=== PATIENT | male | born 1950 | race Caucasian/White ===

== ENCOUNTER 2021-02-23 17:11 | Inpatient (IN) | payer MEDICARE, BC ==
[~2021-02-23] VITALS: Ht 175.3 cm; Wt 62.1 kg
--- NOTE | 2021-02-23 22:15 | NUR ---
GPS ADMISSION NOTE, RECEIVED PATIENT FROM [facility] / [place]. PATIENT ARRIVED ON THIS UNIT AT 2215 VIA WHEELCHAIR WITH 1 ESCORT. PATIENT ADMITTED ON A 5150 HOLD FOR GD. PER HOLD PATIENT HAS NOT SHOWERED OR BATHED IN ONE YEAR PER HIS . PATIENT APPEARS SKINNY AND WITHOUT ASSISTANCE WOULD NOT BE ABLE TO CARE FOR HIMSELF. PATIENT HAS NO VIABLE PLAN FOR SELF CARE AT THIS TIME. THE 5150 WAS REVIEWED AND THE DOCUMENTATION IN THE 5150 HOLD APPEARS TO REFLECT THE PRESENTATION OF THE PATIENT. UPON FACE TO FACE ASSESSMENT PATIENT IS NOTED TO BEING CONFUSED, DISHEVELED, DISORGANIZED, COOPERATIVE, AND NEEDS REDIRECTION. PATIENT IS CURRENTLY LYING IN BED AWAKE, PATIENT HAS A COMPLAINT OF CHRONIC LOWER BACK PAIN AT A 3 OUT 10 ON THE PAIN SCALE. PATIENT IS TAKING ORAL PAIN MEDICATION FOR THIS PAIN. PATIENT IS DISPLAYING NO S/S OF APPARENT DISTRESS. PATIENT BREATHING IS UNLABORED WITH EQUAL RISE AND FALL OF THE CHEST. PATIENT IS ALERT AND ORIENTATED X 1 ON ROOM AIR. PATIENT ASSISTED WITH TURING AND REPOSITIONING Q2HR AND PRN FOR COMFORT AND CIRCULATION. PATIENT HAS NO NEEDS AT THIS TIME. PATIENT DENIES SUICIDE IDEATIONS AND HOMICIDAL IDEATIONS AT THIS TIME. PATIENT REFUSED TO SIGN ANY PAPER WORK AND THINKS THIS IS ALL A MISTAKE. PATIENT ADVISED OF HIS HOLD AND PATIENT RIGHTS BOOKLET GIVEN. PATIENT IS UNDER THE PSYCHIATRIC CARE OF DR. KINNEY AND THE MEDICAL CARE OF DR TATE. PATIENT BELONGINGS WERE INVENTORIED AND CHECKED FOR CONTRABAND. ALL CONTRABAND REMOVED AND STORED IN PATIENT HALLWAY LOCKER. PATIENT ADVANCED DIRECTIVES PREFERENCE, IMMUNIZATIONS QUESTIONER, NECESSARY PAPERWORK COMPLETED. SKIN ASSESSMENT DONE. PATIENT ORIENTATED TO ROOM, FLOOR, AND STAFF WITH ALL QUESTIONS ANSWERED. PATIENT EDUCATED ON THE USE OF THE CALL NUÑEZ. PATIENT BED SIDE RAILS ARE UP X 2 FOR SAFETY. PATIENT BED IS LOCKED, LOW AND I WILL CONTINUE TO MONITOR THIS PATIENT Q 15 MIN WITH THE HELP OF STAFF TO MAINTAIN SAFETY.
[2021-02-23] MEDS ORDERED: BUDE0.5A4 NEB (22:38)
[2021-02-23] MEDS ORDERED: APIX5TAB PO (22:39)
[2021-02-23] MEDS ORDERED: FOLI1CAP7 PO (22:40)
[2021-02-23] MEDS ORDERED: QUET25TA PO ×2 (22:42→22:45)
[2021-02-23] MEDS ORDERED: MULT-754 PO (22:43)
[2021-02-23] MEDS ORDERED: LEVA0.6320 NEB (22:46)
[2021-02-23] MEDS ORDERED: LORAZEPAM 0.5 MG TABLET PO PRN (23:00)
[2021-02-23] MEDS ORDERED: ACETAMINOPHEN 325 MG TABLET PO PRN (23:00)
[2021-02-23] MEDS ORDERED: MAG HYDROX/AL HYDROX/SIMETH 30 ML UDC PO PRN (23:00)
[2021-02-23] MEDS ORDERED: MAGNESIUM HYDROXIDE 30 ML UDC PO PRN (23:00)
[2021-02-23] MEDS ORDERED: BLOOD SUGAR DIAGNOSTIC 1 EACH STRIP IN ONE (23:30)
--- NOTE | 2021-02-24 00:25 | NUR ---
GPS RN NOTE PT BLOOD SUGAR IS 72, GAVE 8 OZ JUICE AND SNACKS GIVEN. ENVIRONMENTAL PROGRAMS SPECIALIST MADE AWARE OF SITUATION.
--- NOTE | 2021-02-24 00:35 | NUR ---
GPS RN NOTE NOTIFIED FIRER BOILER DR TATE REGARDING MED RECON.
[2021-02-24] MEDS ORDERED: ALBUTEROL HALF STRENGTH 1.25 MG/3 ML VIAL.NEB NEB PRN (01:00)
[2021-02-24 01:15] VITALS: BP 139/67
--- NOTE | 2021-02-24 02:25 | NUR ---
GPS RN NOTE PT RESTLESS IN BED, ATTEMPTS TO GET UP. PLACED IN ABDI CHAIR IN HALLWAY. PT TALKING TO SELF, UNCLEAR SPEECH. WILL CONTINUE TO MONITOR FOR SAFETY AND BEHAVIOR THROUGHOUT SHIFT.
--- NOTE | 2021-02-24 05:02 | NUR ---
GPS RN NOTE PT RETURNED BACK TO BED, VERBALIZED WILL TRY TO SLEEP. REQUESTS HAT PT C/O OF HIS HEAD BEING COLD. HAT BELONGING TO PT GIVEN AND REMAINS ON PERSON. ALL OTHER BELONGINGS REMAIN IN PT PERSONAL LOCKER.
[2021-02-24 06:34] LABS: BASOPHILS % (AUTO) 0.4 % (0.0-2.0); EOSINOPHILS % (AUTO) 1.5 % (0.0-6.0); HEMATOCRIT 38 % (39-51); HEMOGLOBIN 12.9 g/dL (13.5-17.5); LYMPHOCYTES # (AUTO) 1.3 /CMM (0.8-4.8); LYMPHOCYTES % (AUTO) 13.9 % (20.0-44.0); MEAN CORPUSCULAR HGB CONC 34 g/dl (31.0-36.0); MEAN CORPUSCULAR VOLUME 99 fL (80-96); NEUTROPHILS # (AUTO) 6.9 /CMM (1.8-8.9); NEUTROPHILS % (AUTO) 73.2 % (43.0-81.0); PLATELET COUNT (AUTO) 291 /CMM (150-450); RED BLOOD CELL COUNT(AUTO) 3.86 MIL/uL (4.5-6.0); WHITE BLOOD COUNT (AUTO) 9.4 K/uL (4.3-11.0)
[2021-02-24 06:54] LABS: CALCIUM, SERUM 8.9 mg/dL (8.5-10.1); CREATININE 0.6 mg/dL (0.6-1.3); POTASSIUM 4.4 mmol/L (3.5-5.1)
[2021-02-24 08:00] VITALS: BP 143/71
[2021-02-24] MEDS: ENSURE ENLIVE CHOC 237 ML CAN PO SCH ×2 (08:18→16:33)
--- NOTE | 2021-02-24 08:45 | NUR ---
RN NOTE- PT AGITATED TAKING SWING AT RN TWICE. PT REFUSING BREAKFAST CARE ORMEDS. ATTEMPTED TO GIVE ATIVAN 0.5 MG FOR AGITATION. PT REFUSED. WENT TO WASTE ATIVAN 0.5 MG W ANDRIA BARNETT RN BUT OMNICELL NWOULDN'T ALLOW WASTE FOR SOME REASON. WASTED IN PILL DESTROYER Abimael MEJIA RN AND ANDRIA MCMILLAN.
[2021-02-24] MEDS ORDERED: HALOPERIDOL LACTATE INJ 5 MG/ML VIAL IM STA ×2 (08:51→16:13)
[2021-02-24] MEDS ORDERED: diphenhydrAMINE HCL 50 MG/ML VIAL IM STA ×2 (08:51→16:13)
[2021-02-24] MEDS ORDERED: LORAZEPAM INJ 2 MG/ML VIAL IM STA ×2 (08:51→16:13)
[2021-02-24] MEDS: APIXABAN 5 MG TABLET PO SCH ×2 (09:00→16:32)
[2021-02-24] MEDS: VIT B CMPLX 3/FA/VIT C/BIOTIN 1 TAB TABLET PO SCH (09:00)
[2021-02-24] MEDS: BUDESONIDE RESPULE INH 0.5 MG/2 ML AMPUL.NEB NEB SCH ×2 (09:00→16:32)
[2021-02-24] MEDS: NICOTINE PATCH (14MG) 14 MG PATCH.TD24 TD SCH (09:00)
[2021-02-24] MEDS: MULTIVITAMINS,THERAGRAN 1 UDTAB TABLET PO SCH (09:00)
--- NOTE | 2021-02-24 09:08 | NUR ---
RN NOTE- PT THREW TABLE OVER IN DAY ROOM. NOT DIRECTABLE. DR KINNEY ORDERED HALDOL 5 MG ATIVAN 2 MG AND BENADRYL 25 MG GIVEN IM STAT. COMPLIED W SECURITY AT BEDSIDE
--- NOTE | 2021-02-24 10:20 | NUR ---
RN NOTE- PT STILL REMAINS IRRITABLE TAKING CLOTHING OFF AND ATTEMPTING TO GET OUT OF CHAIR. MONITORING
--- NOTE | 2021-02-24 11:00 | NUR ---
RN NOTE- PT CALMER . NOT COMBATIVE GARBLED SPEECH CONFUSED STILL ATTEMPTING TO GET OUT OF CHAIR . RX EFFECTIVE REDUCING AGITATION
[2021-02-24] MEDS: THIAMINE HCL 100 MG TABLET PO SCH (12:00)
--- NOTE | 2021-02-24 12:30 | NUR ---
RN NOTE- PT ATE SOME LUNCH, CALMER. STILL GARBLED SPEECH LABILE AT TIMES UNPREDICTABLE.
--- NOTE | 2021-02-24 13:46 | NUR ---
RN NOTE- CHANGED PT. CALM . PASSIVE. MOVED TO DAY ROOM W OTHER PTS. COVERED W BLANKET IN ABDI CHAIR. SLEEPING NOW
--- NOTE | 2021-02-24 15:30 | NUR ---
Family Contact: SW called the pts , Kaleigh ([phone]), and discussed how she is not sure at time what the discharge plan will be as the pt needs to be stabilized and it will depend on how the pt is at the time of discharge.
[2021-02-24 16:00] VITALS: BP 129/75
--- NOTE | 2021-02-24 16:08 | NUR ---
RN NOTE- PT DISRUPTIVE IN ABDI CHAIR ATTEMPTING TO CLIMB OUT AND PUTTING SELF AT RISK. ATTEMPTED TO GIVE PO PRN RX BUT PT REFUSED. TAKING OFF GOWN, BANGING ON TRAY. PHONED DR KINNEY. HALDOL 10 MG, ATIVAN 2 MG BENADRYL 25 MG IM STAT ORDERED.
--- NOTE | 2021-02-24 16:33 | NUR ---
RN NOTE- EMERGENCY IM GIVEN W STAFF. HALDOL 10 MG ATIVAN 2 MG AND BENADRYL 25 MG.
--- NOTE | 2021-02-24 16:49 | NUR ---
Initial Discharge Plan: Pt currently resides with his , Kaleigh ([phone]), in their home located at [address] [place] [address]. Per pts , she is unsure at this time if the pt can return. SW will work with the pt and the MD regarding appropriate discharge planning. SW will form a safe and proper discharge.
--- NOTE | 2021-02-24 18:48 | NUR ---
RN NOTE- EMERGENCY IM EFFECTIVE. PT AWAKE CALM AND WITH NO BEHAVIORAL ISSUES
--- NOTE | 2021-02-24 19:30 | NUR ---
RN PM OPENING NOTE. PER REPORT FROM ANDREA MCMILLAN. PT COMBATIVE TODAY, NON COOPERATIVE WITH CARE. REFUSING MEDICATIONS. TAKING PUNCHES AT STAFF. AT THIS TIME PATIENT DISORIENTED SITTING IN CHAIR. QUIET GARBLED SPEECH WILL CONT TO MONITOR BEHAVIOR AND SAFETY PER PROTOCOL.
[2021-02-24 20:22] VITALS: BP 129/70
[2021-02-24] MEDS: LORAZEPAM 1 MG TABLET PO PRN (21:43)
[2021-02-24] MEDS ORDERED: ARIPIPRAZOLE 5 MG TABLET PO SCH (22:30)
[2021-02-24] MEDS: DIVALPROEX SODIUM 250 MG TABLET.DR PO SCH ×2 (22:30→23:35)
[2021-02-24] MEDS: HALOPERIDOL 5 MG TABLET PO SCH (23:35)
[2021-02-24] MEDS: TEMAZEPAM 7.5 MG CAPSULE PO PRN (23:47)
[2021-02-25 08:00] VITALS: BP 154/74
[2021-02-25] MEDS: VIT B CMPLX 3/FA/VIT C/BIOTIN 1 TAB TABLET PO SCH (10:19)
[2021-02-25] MEDS: DIVALPROEX SODIUM 250 MG TABLET.DR PO SCH ×2 (10:19→21:49)
[2021-02-25] MEDS: NICOTINE PATCH (14MG) 14 MG PATCH.TD24 TD SCH (10:19)
[2021-02-25] MEDS: THIAMINE HCL 100 MG TABLET PO SCH (10:19)
[2021-02-25] MEDS: APIXABAN 5 MG TABLET PO SCH ×2 (10:20→16:35)
[2021-02-25] MEDS: MULTIVITAMINS,THERAGRAN 1 UDTAB TABLET PO SCH (10:20)
[2021-02-25] MEDS: BENZTROPINE MESYLATE (1 MG) 1 MG TABLET PO SCH ×2 (10:20→16:34)
[2021-02-25] MEDS: HALOPERIDOL 5 MG TABLET PO SCH ×2 (10:21→16:35)
[2021-02-25] MEDS: ENSURE ENLIVE CHOC 237 ML CAN PO SCH ×2 (10:26→17:24)
[2021-02-25] MEDS: BUDESONIDE RESPULE INH 0.5 MG/2 ML AMPUL.NEB NEB SCH ×2 (12:56→17:00)
[2021-02-25 16:00] VITALS: BP 126/72
[2021-02-25 20:33] VITALS: BP 107/49
[2021-02-25] MEDS: TEMAZEPAM 7.5 MG CAPSULE PO PRN (22:23)
--- NOTE | 2021-02-25 22:27 | NUR ---
GPS RN NOTES: PATIENT REQUESTED SLEEP MEDICATION D/T INSOMNIA. RESTORIL 7.5MG/1CAP GIVEN PO ORDERED. WILL CONTINUE TO MONITOR.
--- NOTE | 2021-02-26 06:36 | NUR ---
GPS RN CLOSING NOTES: PATIENT IS CURRENTLY LAYING ON BED AWAKE, A/O X1. PATIENT SLEPT 7HR THIS SHIFT. PATIENT WAS MED COMPLIANT THIS SHIFT. NO C/O PAIN AND NO BEHAVIORAL ISSUES THIS SHIFT. NO S/S OF DISTRESS. RESPIRATION EVEN AND UNLABORED WITH EQUAL RISE AND FALL OF THE CHEST ON ROOM AIR. ALL PATIENT CARE NEEDS HAVE BEEN MET ANTICIPATED. BED IN LOWEST POSITION AND LOCKED WITH SIDE RAILS UP X2. WILL CONTINUE TO MONITOR FOR SAFETY, MOOD AND BEHAVIOR AND ENDORSE TO AM SHIFT.
[2021-02-26 08:00] VITALS: BP 131/69
[2021-02-26] MEDS: ENSURE ENLIVE CHOC 237 ML CAN PO SCH ×2 (08:00→17:42)
[2021-02-26] MEDS: NICOTINE PATCH (14MG) 14 MG PATCH.TD24 TD SCH (08:25)
[2021-02-26] MEDS: THIAMINE HCL 100 MG TABLET PO SCH (08:25)
[2021-02-26] MEDS: VIT B CMPLX 3/FA/VIT C/BIOTIN 1 TAB TABLET PO SCH (08:25)
[2021-02-26] MEDS: BENZTROPINE MESYLATE (1 MG) 1 MG TABLET PO SCH ×2 (08:25→16:22)
[2021-02-26] MEDS: DIVALPROEX SODIUM 250 MG TABLET.DR PO SCH (08:25)
[2021-02-26] MEDS: MULTIVITAMINS,THERAGRAN 1 UDTAB TABLET PO SCH (08:25)
[2021-02-26] MEDS: HALOPERIDOL 5 MG TABLET PO SCH ×2 (08:25→16:22)
[2021-02-26] MEDS: APIXABAN 5 MG TABLET PO SCH ×2 (08:27→16:23)
[2021-02-26] MEDS: BUDESONIDE RESPULE INH 0.5 MG/2 ML AMPUL.NEB NEB SCH ×2 (09:00→16:24)
[2021-02-26] MEDS: LORAZEPAM 1 MG TABLET PO PRN (14:39)
--- NOTE | 2021-02-26 14:55 | NUR ---
GPS RN NOTE: PATIENT ANXIOUS ATIVAN 1 MG PO PRN
[2021-02-26 16:00] VITALS: BP 122/62
[2021-02-26 20:04] LABS: BASOPHILS % (AUTO) 0.4 % (0.0-2.0); EOSINOPHILS % (AUTO) 0.8 % (0.0-6.0); HEMATOCRIT 40 % (39-51); HEMOGLOBIN 13.2 g/dL (13.5-17.5); LYMPHOCYTES # (AUTO) 1.8 /CMM (0.8-4.8); LYMPHOCYTES % (AUTO) 14.3 % (20.0-44.0); MEAN CORPUSCULAR HGB CONC 33 g/dl (31.0-36.0); MEAN CORPUSCULAR VOLUME 101 fL (80-96); MONOCYTES # (AUTO) 1.6 /CMM (0.1-1.30); MONOCYTES % (AUTO) 13.1 % (2.0-12.0); NEUTROPHILS # (AUTO) 8.9 /CMM (1.8-8.9); NEUTROPHILS % (AUTO) 71.4 % (43.0-81.0); PLATELET COUNT (AUTO) 271 /CMM (150-450); RED BLOOD CELL COUNT(AUTO) 3.97 MIL/uL (4.5-6.0); WHITE BLOOD COUNT (AUTO) 12.4 K/uL (4.3-11.0)
[2021-02-26 20:21] LABS: ALBUMIN 3.8 g/dL (3.4-5.0); BILIRUBIN,TOTAL 0.5 mg/dL (0.2-1.0); CALCIUM, SERUM 9.8 mg/dL (8.5-10.1); CREATININE 0.7 mg/dL (0.6-1.3); POTASSIUM 4.2 mmol/L (3.5-5.1); TOTAL PROTEIN, SERUM 7.4 g/dL (6.4-8.2)
[2021-02-26 20:39] VITALS: BP 105/59
[2021-02-26] MEDS: TEMAZEPAM 7.5 MG CAPSULE PO PRN (21:32)
[2021-02-26] MEDS: DIVALPROEX SODIUM 125 MG CAP.SPRINK PO SCH (21:32)
[2021-02-27] MEDS: ENSURE ENLIVE CHOC 237 ML CAN PO SCH ×2 (07:26→16:07)
[2021-02-27 08:00] VITALS: BP 127/65
[2021-02-27] MEDS: BUDESONIDE RESPULE INH 0.5 MG/2 ML AMPUL.NEB NEB SCH ×2 (08:11→16:00)
--- NOTE | 2021-02-27 08:11 | NUR ---
RT Pt is on room air with adequate SpO2. No COVID testing has been done with this pt, HHN tx not given due to risk of aerosolization. DEYANIRA Milian notified and aware. No SOB or respiratory distress noted at this time.
[2021-02-27] MEDS: HALOPERIDOL 5 MG TABLET PO SCH ×2 (08:44→16:33)
[2021-02-27] MEDS: NICOTINE PATCH (14MG) 14 MG PATCH.TD24 TD SCH (08:44)
[2021-02-27] MEDS: DIVALPROEX SODIUM 125 MG CAP.SPRINK PO SCH ×2 (08:44→20:28)
[2021-02-27] MEDS: VIT B CMPLX 3/FA/VIT C/BIOTIN 1 TAB TABLET PO SCH (08:44)
[2021-02-27] MEDS: THIAMINE HCL 100 MG TABLET PO SCH (08:44)
[2021-02-27] MEDS: BENZTROPINE MESYLATE (1 MG) 1 MG TABLET PO SCH ×2 (08:44→16:34)
[2021-02-27] MEDS: MULTIVITAMINS,THERAGRAN 1 UDTAB TABLET PO SCH (08:44)
[2021-02-27] MEDS: APIXABAN 5 MG TABLET PO SCH ×2 (08:45→16:38)
--- NOTE | 2021-02-27 14:57 | NUR ---
[facility] APS: Billy Flores ([phone]), APS SW, called the SW and stated that she is recommending that the pt does not return to the home as he gets aggressive with the pts .
[2021-02-27 16:00] VITALS: BP 114/63
[2021-02-27 20:06] VITALS: BP 134/70
[2021-02-27] MEDS: TEMAZEPAM 7.5 MG CAPSULE PO PRN (22:07)
[2021-02-28] MEDS: LORAZEPAM 1 MG TABLET PO PRN ×2 (01:06→21:40)
--- NOTE | 2021-02-28 06:45 | NUR ---
RN NOTES, PATIENT IN DINNING ROOM AT THIS TIME, RESTORIL GIVEN LAST NIGHT, AFTER PATIENT NOTED TRYING TO GETTING UP FROM BED AND ANXIOUS ATIVAN GIVEN, WITH LACK OF HOURS OF SLEEP, NO DISRUPTIVE BEHAVIOR NOTED THROUGHOUT THE SHIFT, HAD SNACK LAST NIGHT, NO DISTRESS NOTED DURING THE NIGHT, WILL ENDORSE CONTINUITY OF CARE TO ONCOMING NURSE
[2021-02-28 07:08] LABS: BASOPHILS % (AUTO) 0.3 % (0.0-2.0); EOSINOPHILS % (AUTO) 2.8 % (0.0-6.0); HEMATOCRIT 39 % (39-51); HEMOGLOBIN 12.7 g/dL (13.5-17.5); LYMPHOCYTES # (AUTO) 2.3 /CMM (0.8-4.8); LYMPHOCYTES % (AUTO) 19.7 % (20.0-44.0); MEAN CORPUSCULAR HGB CONC 33 g/dl (31.0-36.0); MEAN CORPUSCULAR VOLUME 101 fL (80-96); MONOCYTES # (AUTO) 1.4 /CMM (0.1-1.30); MONOCYTES % (AUTO) 12.2 % (2.0-12.0); NEUTROPHILS # (AUTO) 7.7 /CMM (1.8-8.9); PLATELET COUNT (AUTO) 274 /CMM (150-450); RED BLOOD CELL COUNT(AUTO) 3.84 MIL/uL (4.5-6.0); WHITE BLOOD COUNT (AUTO) 11.8 K/uL (4.3-11.0)
[2021-02-28 08:00] VITALS: BP 111/58
[2021-02-28] MEDS: ENSURE ENLIVE CHOC 237 ML CAN PO SCH ×2 (08:00→17:00)
[2021-02-28 08:03] LABS: CALCIUM, SERUM 9.4 mg/dL (8.5-10.1); CREATININE 0.7 mg/dL (0.6-1.3); PHOSPHORUS 3.8 mg/dL (2.5-4.9); POTASSIUM 3.9 mmol/L (3.5-5.1)
[2021-02-28] MEDS: BUDESONIDE RESPULE INH 0.5 MG/2 ML AMPUL.NEB NEB SCH ×2 (09:00→17:00)
[2021-02-28] MEDS: THIAMINE HCL 100 MG TABLET PO SCH (09:43)
[2021-02-28] MEDS: NICOTINE PATCH (14MG) 14 MG PATCH.TD24 TD SCH (09:43)
[2021-02-28] MEDS: HALOPERIDOL 5 MG TABLET PO SCH ×2 (09:43→18:22)
[2021-02-28] MEDS: VIT B CMPLX 3/FA/VIT C/BIOTIN 1 TAB TABLET PO SCH (09:44)
[2021-02-28] MEDS: MULTIVITAMINS,THERAGRAN 1 UDTAB TABLET PO SCH (09:44)
[2021-02-28] MEDS: DIVALPROEX SODIUM 125 MG CAP.SPRINK PO SCH ×2 (09:44→21:40)
[2021-02-28] MEDS: BENZTROPINE MESYLATE (1 MG) 1 MG TABLET PO SCH ×2 (09:44→18:23)
[2021-02-28] MEDS: APIXABAN 5 MG TABLET PO SCH ×2 (09:46→18:22)
--- NOTE | 2021-02-28 13:54 | NUR ---
Probable Cause Hearing: Pts [id number] hold was upheld for grave disability.
[2021-02-28 16:00] VITALS: BP 112/60
--- NOTE | 2021-02-28 16:36 | NUR ---
Family Contact: SW called the pts , Kaleigh ([phone]), and discussed the pts discharge plan. SW explained SNF discharge and discussed the pts current behaviors and diagnosis with the pts . Pts stated that she cannot have the pt return home at this time and that she would like him to be placed. SW stated that she will work on that.
--- NOTE | 2021-02-28 17:02 | NUR ---
ua sent as per orders.
--- NOTE | 2021-02-28 19:30 | NUR ---
GPS RN OPENING NOTE REPORT RECIEVED FROM ALEXUS Ford RN. PATIENT IN DINNING ROOM/[facility] IN [facility]. AT THIS TIME, HE IS NOT PARTICIPARING OR TALKATIVE, WITH OTHERS. RESPONDS INAPPRPRIATELY WHEN SPOKEN TOO. FRGAMENTED SENTENCING. BREATHING EVEN AND UNLABORED. IN NO APPARENT DISTRESS OR PAIN. AT THIS TIME HE IS COOPERATIVE WITH CARE, NO APPARENT SI/HI AT THIS TIME. WILL CONT TO MONITOR PER GPS PROTOCOL AND BEHAVIOR.
[2021-02-28 19:44] LABS: BILIRUBIN,URINE NEGATIVE (NEGATIVE); COLOR,URINE YELLOW (YELLOW); LEUKOCYTE ESTERASE ,URINE NEGATIVE (NEGATIVE); NITRITE, URINE NEGATIVE (NEGATIVE); PH,URINE 5.5 (5.0-8.0); PROTEIN,URINE NEGATIVE (NEGATIVE); UGLUCOSE NEGATIVE (NEGATIVE); UROBILINOGEN,URINE 0.2 EU/dL (0.2)
[2021-02-28 20:42] VITALS: BP 119/53
[2021-03-01 08:00] VITALS: BP 150/77
[2021-03-01] MEDS: ENSURE ENLIVE CHOC 237 ML CAN PO SCH ×2 (08:00→17:50)
[2021-03-01] MEDS: BUDESONIDE RESPULE INH 0.5 MG/2 ML AMPUL.NEB NEB SCH ×2 (08:00→16:13)
--- NOTE | 2021-03-01 10:28 | NUR ---
Family Contact: Pts , Kaleigh ([phone]), called the SW and stated that she wanted to know how she can manage the pts finances. SW stated that she can apply to become the pts DPOA once the pt is released from the hospital as he cannot sign any paper work once he is on a hold. SOL then informed her that the pt is going to be discharged on Saturday.
--- NOTE | 2021-03-01 10:39 | NUR ---
SNF Referral: SOL faxed a referral to [facility] with attn to Jeffy to the fax number: [phone].
[2021-03-01] MEDS: MULTIVITAMINS,THERAGRAN 1 UDTAB TABLET PO SCH (10:45)
[2021-03-01] MEDS: DIVALPROEX SODIUM 125 MG CAP.SPRINK PO SCH (10:45)
[2021-03-01] MEDS: VIT B CMPLX 3/FA/VIT C/BIOTIN 1 TAB TABLET PO SCH (10:46)
[2021-03-01] MEDS: HALOPERIDOL 5 MG TABLET PO SCH ×2 (10:46→17:50)
[2021-03-01] MEDS: THIAMINE HCL 100 MG TABLET PO SCH (10:46)
[2021-03-01] MEDS: NICOTINE PATCH (14MG) 14 MG PATCH.TD24 TD SCH (10:46)
[2021-03-01] MEDS: BENZTROPINE MESYLATE (1 MG) 1 MG TABLET PO SCH ×2 (10:46→17:50)
[2021-03-01] MEDS: APIXABAN 5 MG TABLET PO SCH ×2 (10:51→18:05)
[2021-03-01 16:00] VITALS: BP 126/61
--- NOTE | 2021-03-01 18:30 | NUR ---
pierce sent. Addendum: 03/01/21 at 1906 by ALEXUS MONSALVE RN above note incorrect.
--- NOTE | 2021-03-01 19:06 | NUR ---
pt. oob most of day,med compliant.
[2021-03-01 20:00] VITALS: BP 150/77
[2021-03-01] MEDS: LORAZEPAM 1 MG TABLET PO PRN (20:00)
[2021-03-01] MEDS: TEMAZEPAM 7.5 MG CAPSULE PO PRN (21:12)
[2021-03-02 08:00] VITALS: BP 98/56
[2021-03-02] MEDS: BUDESONIDE RESPULE INH 0.5 MG/2 ML AMPUL.NEB NEB SCH ×2 (08:01→16:17)
[2021-03-02] MEDS: HALOPERIDOL 5 MG TABLET PO SCH ×2 (08:33→17:17)
[2021-03-02] MEDS: BENZTROPINE MESYLATE (1 MG) 1 MG TABLET PO SCH ×2 (08:33→17:17)
[2021-03-02] MEDS: THIAMINE HCL 100 MG TABLET PO SCH (08:33)
[2021-03-02] MEDS: APIXABAN 5 MG TABLET PO SCH ×2 (08:35→17:17)
[2021-03-02] MEDS: MULTIVITAMINS,THERAGRAN 1 UDTAB TABLET PO SCH (08:35)
[2021-03-02] MEDS: VIT B CMPLX 3/FA/VIT C/BIOTIN 1 TAB TABLET PO SCH (08:35)
[2021-03-02] MEDS: NICOTINE PATCH (14MG) 14 MG PATCH.TD24 TD SCH (08:35)
[2021-03-02] MEDS: ENSURE ENLIVE CHOC 237 ML CAN PO SCH ×2 (08:40→17:49)
[2021-03-02] MEDS: DIVALPROEX SODIUM 250 MG TABLET.DR PO SCH ×3 (09:34→17:17)
--- NOTE | 2021-03-02 15:42 | NUR ---
SNF Contact: Toño ([phone]) from [facility] contacted the SW and stated that the pt was accepted to their facility.
--- NOTE | 2021-03-02 15:46 | NUR ---
Family Contact: SOL called the pts , Kaleigh ([phone]), and informed her that the pt is going to be discharged the following day.
[2021-03-02 16:00] VITALS: BP 145/68
[2021-03-02 20:16] VITALS: BP 119/59
[2021-03-02] MEDS: LORAZEPAM 1 MG TABLET PO PRN (21:47)
--- NOTE | 2021-03-02 21:47 | NUR ---
RN NOTES: ANXIETY PT. C/O FEELING ANXIOUS ,RESTLESS, 1 MG PO PRN GIVEN PER PT. REQUEST ,WILL CONTINUE TO MONITOR.
[2021-03-03] MEDS ORDERED: HALO5TAB PO (04:44)
[2021-03-03 08:00] VITALS: BP 131/59
[2021-03-03] MEDS: ENSURE ENLIVE CHOC 237 ML CAN PO SCH (08:05)
[2021-03-03] MEDS: BUDESONIDE RESPULE INH 0.5 MG/2 ML AMPUL.NEB NEB SCH (09:00)
[2021-03-03] MEDS: NICOTINE PATCH (14MG) 14 MG PATCH.TD24 TD SCH (09:00)
--- NOTE | 2021-03-03 09:00 | NUR ---
RN NOTE-PT ALERT ORIENTED TO PERSON ONLY, CONFUSED, INTERACTIVE PT MED COMPLIANT AND GOOD PO INTAKE
--- NOTE | 2021-03-03 09:11 | NUR ---
Dr. Crespo gave an order to D/C hold and D/C to [facility], [facility]. To continue same meds including prn and to follow up with the psych and medical doctors.
[2021-03-03] MEDS: DIVALPROEX SODIUM 250 MG TABLET.DR PO SCH ×2 (09:29→12:58)
[2021-03-03] MEDS: HALOPERIDOL 5 MG TABLET PO SCH (09:29)
[2021-03-03] MEDS: MULTIVITAMINS,THERAGRAN 1 UDTAB TABLET PO SCH (09:29)
[2021-03-03] MEDS: THIAMINE HCL 100 MG TABLET PO SCH (09:29)
[2021-03-03] MEDS: BENZTROPINE MESYLATE (1 MG) 1 MG TABLET PO SCH (09:29)
[2021-03-03] MEDS: APIXABAN 5 MG TABLET PO SCH (09:30)
[2021-03-03] MEDS: VIT B CMPLX 3/FA/VIT C/BIOTIN 1 TAB TABLET PO SCH (09:31)
--- NOTE | 2021-03-03 11:34 | NUR ---
Dr. Mendez made aware of the discharge and reconciled the meds.
--- NOTE | 2021-03-03 12:28 | NUR ---
Discharge Note: Pt will be discharged to [facility] ([facility]) located at [address] [place] [address]; . Pts , Kaleigh ([phone]), was informed. Pt will be transported via [facility] at 1PM. Upon discharge, the pt appears to be alert and oriented x3 (time, place, and self). Pt appears to be in a depressed mood and presents with a calm mood. Pt denies both suicidal and homicidal ideation as well as auditory and visual hallucinations. Pt appears to be ambulatory with an unsteady gait. Pt appears to be well groomed and appropriately dressed. Pt will continue to be under the care of her psychiatrist, Dr. Crespo, located at [address] [place] [address]; and reel operator, Dr. Morris, located at [address] [facility] [id number], [place] [address]; . The choice of vendor form and multidisciplinary exit care form were done, printed, signed, and given to the patient. Addendum: 03/03/21 at 1300 by SOL SHERIDAN SOL provided the pt with substance abuse referrals as well as smoking cessation referrals. SOL provided the pt with a copy and placed a copy in the pts chart. Pt will continue to work with his treatment team.
--- NOTE | 2021-03-03 14:55 | NUR ---
RN NOTE- PT DC AT THIS TIME TO [facility] VIA GURNEY AND AMBULANCE., PT IS ALERT ORIENTED TO PERSON ONLY. CONFUSED AND CALM. PT DIRECTABLE AND MILDLY INTERACTIVE. MED COMPLIANT, PO INTAKE GOOD. ID [id number] REMOVED, VALUABLES RETURNED. REPORT GIVEN TO FACILITY. AFTERCARE REVIEWED W AMBULANCE STAFF. PT UNABLE TO RECEIVE VACCS DUE TO CONFUSION TO HIS VACC HX. ESCORTED OFF UNIT BY STAFF.
== END 2021-03-03 14:55 | DRG 885 ==
LOC: GPS 21:59
PROVIDERS: ADMIT Psychiatry & Neurology Psychiatry; ATTEND Internal Medicine
DX: F20.9 Schizophrenia, unspecified (principal); E51.2 Wernicke's encephalopathy; F39 Unspecified mood [affective] disorder; F41.9 Anxiety disorder, unspecified; F29 Unspecified psychosis not due to a substance or known physiological condition; Z73.6 Limitation of activities due to disability; F10.10 Alcohol abuse, uncomplicated; Y90.1 Blood alcohol level of 20-39 mg/100 ml; G31.84 Mild cognitive impairment of uncertain or unknown etiology; Z86.711 Personal history of pulmonary embolism; D72.829 Elevated white blood cell count, unspecified; F17.200 Nicotine dependence, unspecified, uncomplicated; D53.9 Nutritional anemia, unspecified; Z79.01 Long term (current) use of anticoagulants
CPT/HCPCS: 36415; 80048-TC; 80053-TC; 80061-TC; 80164-TC; 82962-TC; 83735-TC; 84100-TC; 85025-TC; 94799-TC; 97112-TC; 97116-TC; 97530-TC; J1200; J1630; J2060